=== PATIENT | male | born 1945 | race Caucasian/White ===

== ENCOUNTER → 2018-04-27 09:24 | Outpatient (CLI) | payer MEDICARE, SELFPAY ==
--- NOTE | 2018-04-27 09:30 | XR_ITS ---
XR chest 2V HISTORY: ITS.REASON: HTN ORDERING PHYSICIAN: Homero David JR, MD PATIENT AGE: 73 years COMPARISON: None FINDINGS: The cardiomediastinal silhouette and pulmonary vascularity are within normal limits. There is increased density in the right lung base medially which may be due to an area of infiltrate. Suggest follow-up to confirm resolution. At this does not resolve then, CT may be needed for further evaluation. The remaining lungs are clear. No acute bony anomalies. IMPRESSION: Increased markings right lung base medially suspicious for an area of infiltrate. Suggest follow until clear
== END ==
PROVIDERS: PCP Family Medicine; Visit Provider Family Medicine
DX: Z01.818 Encounter for other preprocedural examination (principal)
CPT/HCPCS: 71046

== ENCOUNTER → 2018-05-18 13:22 | Outpatient (CLI) | payer MEDICARE, SELFPAY ==
--- NOTE | 2018-05-18 13:28 | XR_ITS ---
XR chest 2V HISTORY: Follow-up pneumonia, previous smoker ITS.REASON: LUNG INFILTRATE ORDERING PHYSICIAN: Homero David JR, MD PATIENT AGE: 73 years COMPARISON: 04/27/2018 FINDINGS: The cardiomediastinal silhouette and pulmonary vascularity are within normal limits. The increased markings previously described in the right lung base medially have improved consistent with improvement in infiltrate with some overlying summation artifact. Remaining lungs are clear. No acute bony anomalies. IMPRESSION: No acute finding. Improved infiltrate in the right lung base
== END ==
PROVIDERS: PCP Family Medicine; Visit Provider Family Medicine
DX: R91.8 Other nonspecific abnormal finding of lung field (principal)
CPT/HCPCS: 71046

== ENCOUNTER → 2018-06-12 20:00 | Outpatient (CLI) | payer MEDICARE, SELFPAY ==
--- NOTE | 2018-06-12 20:05 | XR_ITS ---
XR chest 2V HISTORY: ITS.REASON: CONGESTION ORDERING PHYSICIAN: Homero David JR, MD PATIENT AGE: 73 years COMPARISON: 05/18/2018 FINDINGS: The cardiomediastinal silhouette and pulmonary vascularity are within normal limits. The lungs are clear without infiltrates, suspicious nodules, or pleural effusions. No acute bony abnormalities. IMPRESSION: Negative chest, no acute finding
== END ==
PROVIDERS: Visit Provider Family Medicine
DX: Z01.811 Encounter for preprocedural respiratory examination (principal); M25.561 Pain in right knee
CPT/HCPCS: 71046

== ENCOUNTER 2018-07-28 08:30 | Outpatient (RCR) | payer MEDICARE, SELFPAY | END 2018-07-28 08:31 | disposition home or self-care (01) | LOC: PT 08:30 | PROVIDERS: PCP Family Medicine; Visit Provider Orthopaedic Surgery | DX: M25.561 Pain in right knee (principal) | CPT/HCPCS: 97016; 97110; 97140; 97163 ==

== ENCOUNTER → 2020-05-15 15:16 | Outpatient (CLI) | payer MEDICARE, SELFPAY ==
[2020-05-15 18:35] LABS: Coronavirus 19 IgG Antibody Negative (Negative); Coronavirus 19 IgM Antibody Negative (Negative)
== END ==
PROVIDERS: PCP Family Medicine; Visit Provider Family Medicine
DX: Z20.828 Contact with and (suspected) exposure to other viral communicable diseases (principal)
CPT/HCPCS: 36415; 86328

== ENCOUNTER 2020-09-05 15:05 | Emergency (ER) | payer MEDICARE, SELFPAY ==
[2020-09-05 15:06] VITALS: BP 154/89; PULSE 88; RESP 16; TEMP 36.6; O2SAT 98; BMI 36.1
--- NOTE | 2020-09-05 15:09 | ECG_ITS ---
APPROVED REPORT Exam: Resting ECG HR:85 bpm ECG Measurements Heart Rate 85 AXES UT 152 P 53 QRSd 88 QRS 6 QT 374 T 28 QTc 445 Conclusion Sinus rhythm with occasional premature ventricular complexes Abnormal ECG Electronically signed by : Joe Greenfield, 09/15/2020 16:28:34
--- NOTE | 2020-09-05 15:12 | CT_ITS ---
Procedure: CT ANGIO NECK CLINICAL HISTORY: dysarthria COMPARISON: CT CT ANGIO HEAD from 09/05/2020 TECHNIQUE: IV Contrast: 100ml Optiray 350 Axial images obtained with sagittal and coronal reformats. All CT scans at the facility use one or more dose reduction, viz: automated exposure control, ma/kV adjustment per patient size (including targeted exams where dose is matched to indication, i.e. head), or iterative reconstruction technique. FINDINGS: There are atheromatous changes of the aortic arch. No significant stenosis of the proximal aspect of the great vessels. Right carotid: Common carotid has an unremarkable appearance. Fibrocalcific plaque is present at the proximal aspect of the right ICA with eccentric calcific plaque and soft plaque also noted. This. There is 50 percent stenosis at this area. There is tortuosity of the right ICA having a retropharyngeal location. The remaining cervical portion of the right ICA has an unremarkable appearance. No ulcerating plaque is evident. Left carotid: The common carotid has an unremarkable appearance. Calcific plaque is present involving the proximal left ICA. There is less than 20 percent stenosis but there is some ulceration along the posterior aspect the left carotid bulb. Eccentric calcific plaque is present involving the proximal left ICA. No significant stenosis. There is a very small right vertebral artery. The left vertebral artery is dominant with a prominent left vertebral artery with severe calcific plaque involving the proximal aspect of the left vertebral artery. The plaque extends from the left subclavian artery into the ostium the left vertebral artery. There is suspected critical stenosis of the ostium of the left vertebral versus occlusion somewhat difficult to analyze due to the artifact from the calcific plaque. CTA of the brain: The basilar artery is composed almost exclusively of the left vertebral artery. There is some mild amount of calcific plaque in the basilar artery with approximately 25 percent stenosis. The intracranial portion of the internal carotids are unremarkable with a small amount of calcific plaque with no significant stenosis. There is a small area outpouching of the suprasellar portion of the left ICA inferiorly suggesting a small aneurysm at 3 by 2 mm at the PCOM area. There is a very small vessel emanating from the medial aspect of this and may be due to a very small PCOM or anterior meningeal artery. This is on the borderline between a infundibulum and a small aneurysm. There is absence of the right A1 segment. The right anterior cerebral artery fills via a patent anterior communicating artery from the left carotid. Follow-up suggested. No evidence of dural sinus thrombosis. No enhancing lesions are evident. No midline shift or mass effect. IMPRESSION: 1. 50 percent stenosis of the proximal right ICA secondary to calcific plaque 2. Less than 20 percent stenosis of the proximal left ICA with shallow ulceration of the left carotid bulb 3. 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 4. Critical stenosis versus occlusion of the proximal aspect of the left vertebral artery secondary to prominent calcific plaque. The left vertebral artery is dominant 5. 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
--- NOTE | 2020-09-05 15:12 | XR_ITS ---
PROCEDURE: XR CHEST PORTABLE CLINICAL HISTORY: cough COMPARISON: CR CXR2V XR chest 2V from 04/27/2018 CR CXR2V XR chest 2V from 05/18/2018 CR CXR2V XR chest 2V from 06/12/2018 FINDINGS: The cardiomediastinal silhouette and pulmonary vascularity are within normal limits. The lungs are clear without infiltrates, suspicious nodules, or pleural effusions. No acute bony abnormalities. IMPRESSION: No acute findings. Dictated by: Minor Valdez MD 09/05/2020 17:04 Minor Valdez MD in [facility] 09/05/2020 17:04
--- NOTE | 2020-09-05 15:12 | CT_ITS ---
PROCEDURE: CT HEAD/BRAIN WO CON CLINICAL INDICATION: dysarthria COMPARISON: No exams were available for comparison TECHNIQUE: Axial images obtained. All CT scans at the facility use one or more dose reduction, viz: automated exposure control, ma/kV adjustment per patient size (including targeted exams where dose is matched to indication, i.e. head), or iterative reconstruction technique. FINDINGS: No midline shift, mass effect, intracranial hemorrhage, hydrocephalus, or extra-axial fluid collection is evident. Calcific plaque is present in the basilar artery and cavernous portion of the carotids. The calvarium has an unremarkable appearance. No mastoid effusion. No sinus air-fluid level. IMPRESSION: No acute intracranial finding Dictated by: Minor Valdez MD 09/05/2020 16:03 Minor Valdez MD in [facility] 09/05/2020 16:03
--- NOTE | 2020-09-05 15:24 | PC.NURSE ---
Pt to rad
[2020-09-05 15:26] LABS: Basophils # 0.1 K/mm3 (0-0.2); Basophils % 1.3 % (0.1-2.0); Eosinophils # 0.3 K/mm3 (0.0-0.4); Eosinophils % 3.1 % (0.1-12.0); Hematocrit 48.5 % (42.0-52.0); Hemoglobin 16.1 g/dL (14.1-18.0); Lymphocytes # 2.6 K/mm3 (0.7-4.5); Lymphocytes % 28.3 % (10-50); Mean Corpuscular HGB Conc 33.3 g/dL (31.8-35.4); Mean Corpuscular Hemoglobin 31.6 pg (27.0-31.2); Mean Platelet Volume 8.6 fl (7.4-10.4); Monocytes # 0.7 K/mm3 (0.1-1.0); Monocytes % 7.2 % (1.7-9.3); Neutrophils # 5.6 K/mm3 (1.8-7.8); Neutrophils % 60.1 % (37.0-80.0); Platelet Count 227 K/mm3 (142-424); Red Cell Distribution Width 13.1 % (11.5-17.5); White Blood Count 9.3 K/mm3 (4.8-10.8)
[2020-09-05 15:28] LABS: Chloride 102 mmol/L (98-107)
[2020-09-05 15:29] LABS: Potassium 3.5 mmoL/L (3.5-5.1); Sodium 141 mmol/L (136-145)
[2020-09-05 15:31] LABS: Alanine Aminotransferase 23 U/L (12-78); Aspartate Amino Transferase 28 U/L (17-59); Blood Urea Nitrogen 20 mg/dl (9-20); Creatinine Clearance Estimated 84 mL/min (50-200); Estimated Glomerular Filt Rate 54 ml/min (>60); GFR (African American) 65 ML/MIN (>60)
[2020-09-05 15:32] LABS: Albumin Level 4.1 g/dl (3.5-5.0); Albumin/Globulin Ratio 1.4 (1.1-1.8); Alkaline Phosphatase 63 U/L (38-126); Anion Gap 9.5 mEq/L (5-15); Bilirubin,Total 0.9 mg/dl (0.2-1.3); Calcium 9.2 mg/dl (8.4-10.2); Carbon Dioxide 33 mmol/L (22.0-30.0); Globulin 2.9 g/dL (1.3-3.2); Glucose 95 mg/dl (74-100); Lipase 93 U/L (23-300)
[2020-09-05 15:36] LABS: Activated Partial Thrombo Time 23.9 seconds (23.6-34.0); INR 1.02 (0.9-1.1); Prothrombin Time 11.3 seconds (9.4-11.8)
[2020-09-05 15:41] LABS: NT Pro Brain Natriuretic Pep. 83.6 pg/mL (0-125)
[2020-09-05 15:47] LABS: Troponin I < 0.01 ng/ml (0.00-0.034)
--- NOTE | 2020-09-05 15:56 | HMH.EDWEAK ---
ED Disposition Clinical Impression: Dysarthria as late effect of cerebrovascular accident (CVA) Disposition: Home, Self-Care Condition on Discharge: Fair Instructions: DI for Stroke-Ischemic Referrals: PCP,Lindsey [Primary Care Provider] - Roxana Shane MD [Staff Physician] - - Critical Care Critical Care Time: No Attestation: On 09/05/20, the high probability of a clinically significant, sudden or life threatening deterioration of the following system(s) required my full and direct attention, intervention and personal management. The time I documented below is in addition to time spent performing reported procedures but includes the following listed in this critical care notation. Medical Decision Making - Medical Records Medical records reviewed: Yes: I reviewed the patient's medical records. - Christopher Inquiry Pt receiving controlled substance: No Vital Signs: 09/05/20 15:06 09/05/20 16:08 09/05/20 16:39 Temperature 98 F Temperature Source Oral Pulse Rate [Radial] 88 85 80 Respiratory Rate 16 20 Blood Pressure [Right Arm] 154/89 H 140/73 152/69 H Blood Pressure Mean [Right Arm] 110 95 96 Blood Pressure Source [Right Arm] Automatic Cuff Automatic Cuff Blood Pressure Position [Right Arm] Sitting Sitting Sitting 02 Sat by Pulse Oximetry 98 97 94 L Oxygen Delivery Method Room Air Room Air Room Air - Lab Data Lab Results 09/05/20 15:16: WBC 9.3, RBC 5.10, Hgb 16.1, Hct 48.5, MCV 95.0 H, MCH 31.6 H, MCHC 33.3, RDW 13.1, Plt Count 227, MPV 8.6, Neut % (Auto) 60.1, Lymph % (Auto) 28.3, [place] % (Auto) 7.2, Eos % (Auto) 3.1, Baso % (Auto) 1.3, Neut # (Auto) 5.6, Lymph # (Auto) 2.6, [place] # (Auto) 0.7, Eos # (Auto) 0.3, Baso # (Auto) 0.1 09/05/20 15:16: PT 11.3, INR 1.02, APTT 23.9 09/05/20 15:16: Sodium 141, Potassium 3.5, Chloride 102, Carbon Dioxide 33 H, Anion Gap 9.5, BUN 20, Creatinine 1.30 H, Estimated Creat Clear 84, Estimated GFR 54 L, Est GFR ( Amer) 65, Glucose 95, Calcium 9.2, Total Bilirubin 0.9, AST 28, ALT 23, Alkaline Phosphatase 63, Troponin I < 0.01, NT-Pro-B Natriuret Pep 83.6, Total Protein 7.0, Albumin 4.1, Globulin 2.9, Albumin/Globulin Ratio 1.4, Lipase 93, TSH 1.78 09/05/20 16:25: Urine Color Yellow, Urine Appearance Clear, Urine pH 7.0, Ur Specific Crawford 1.010, Urine Protein Negative, Urine Glucose (UA) Negative, Urine Ketones Negative, Urine Blood Negative, Urine Nitrate Negative, Urine Bilirubin Negative, Urine Urobilinogen 0.2, Ur Leukocyte Esterase Negative, Urine RBC Occasional, Urine WBC None, Ur Squamous Epith Cells Occasional, Urine Bacteria None Result diagrams: 09/05/20 15:16 09/05/20 15:16 Orders (Tests/Meds): ED MEDICATIONS Discontinued Medications Generic Name Dose Route Start Last Admin Trade Name Daytonq PRN Reason Stop Dose Admin Ioversol 100 ml 09/05/20 15:47 09/05/20 15:48 Ioversol-350 (74%) 100ml Vial IV 09/05/20 15:48 100 ml ONCE ONE Administration Protocol Sodium Chloride 10 ml 09/05/20 15:47 09/05/20 15:48 Sodium Chloride 0.9% 10ml Syr (Rad Only) IV 09/05/20 15:48 10 ml ONCE ONE Administration Sodium Chloride 50 ml 09/05/20 15:47 09/05/20 15:48 0.9 % Sodium Chloride 50 Ml Vial IV 09/05/20 15:48 50 ml ONCE ONE Administration ORDERS Category Date Time Status XR chest portable Stat Exams 09/05/20 15:12 Taken Troponin I Q3H Lab 09/05/20 18:15 Ordered Troponin I Q3H Lab 09/05/20 21:15 Ordered EKG Request [ECG Request by /Nse] Stat Y 09/05/20 15:12 Ordered - CT Data CT Scan: Head Time Received: 16:[address] Reviewed: Yes: I have reviewed the patient's CT results, I have viewed the radiologist's interpretation Findings Narrative: IMPRESSION: No acute intracranial finding CTA head/neck IMPRESSION: 1. 50 percent stenosis of the proximal right ICA secondary to calcific plaque 2. Less than 20 percent stenosis of the proximal left ICA with shallow ulceration of the left carotid bulb
[2020-09-05 16:03] LABS: Thyroid Stimulating Hormone 1.78 uIU/mL (0.465-4.68)
[2020-09-05 16:08] VITALS: BP 140/73; PULSE 85; O2SAT 97
[2020-09-05 16:31] LABS: Microscopic, Urine URINE MICROSCOPIC (MICROSCOPIC)
[2020-09-05 16:33] LABS: Appearance,Urine CLEAR (Clear); Bilirubin,Urine Negative (Negative); Blood, Urine Negative (Negative); Color,Urine YELLOW (Yellow); Glucose,Urine (UA) Negative (Negative); Ketones,Urine Negative (Negative); Leukocyte Esterase,Urine Negative (Negative); Nitrate,Urine Negative (Negative); Protein,Urine Negative (Negative); Urobilinogen,Urine 0.2 EU/dl (0.2)
[2020-09-05 16:39] VITALS: BP 152/69; PULSE 80; RESP 20; O2SAT 94
[2020-09-05 16:41] LABS: RBC,Urine Occasional #/hpf (0-3)
[2020-09-05 16:42] LABS: Squamous Epithelial Cell,Urine Occasional #/hpf (0-5)
[2020-09-05 17:07] VITALS: BP 144/86; PULSE 78; RESP 16; TEMP 36.6; O2SAT 98
[2020-10-02 09:29] LABS: POC Glucose,Bedside 98 (70-110)
== END 2020-09-05 17:08 | disposition home or self-care (01) ==
PROVIDERS: Emergency Provider Emergency Medicine
DX: I69.322 Dysarthria following cerebral infarction (principal); I10 Essential (primary) hypertension; E78.5 Hyperlipidemia, unspecified; Z87.891 Personal history of nicotine dependence; Z79.899 Other long term (current) drug therapy
CPT/HCPCS: 70450; 70496; 70498; 71045; 80053; 81001; 82962; 83690; 83880; 84443; 84484; 85025; 85610; 85730; 93005; 99284; Q9967

== ENCOUNTER → 2020-10-18 11:54 | Outpatient (CLI) | payer MEDICARE, SELFPAY | PROVIDERS: PCP Family Medicine; Visit Provider Family Medicine | DX: R00.2 Palpitations (principal); H54.7 Unspecified visual loss; I63.9 Cerebral infarction, unspecified; G45.9 Transient cerebral ischemic attack, unspecified | CPT/HCPCS: 93225; 93226 ==

== ENCOUNTER → 2021-10-28 15:33 | Outpatient (CLI) | payer MEDICARE, SELFPAY ==
[2021-10-28 16:05] LABS: Basophils # 0.2 K/mm3 (0-0.2); Basophils % 1.9 % (0.1-2.0); Eosinophils # 0.3 K/mm3 (0.0-0.4); Eosinophils % 2.7 % (0.1-12.0); Hematocrit 40.7 % (42.0-52.0); Hemoglobin 14.1 g/dL (14.1-18.0); Lymphocytes # 2.5 K/mm3 (0.7-4.5); Lymphocytes % 27.8 % (10-50); Mean Corpuscular HGB Conc 34.7 g/dL (31.8-35.4); Mean Corpuscular Hemoglobin 31.4 pg (27.0-31.2); Mean Corpuscular Volume 90.4 fl (80-94); Mean Platelet Volume 8.7 fl (7.4-10.4); Monocytes # 0.7 K/mm3 (0.1-1.0); Monocytes % 7.8 % (1.7-9.3); Neutrophils # 5.5 K/mm3 (1.8-7.8); Neutrophils % 59.9 % (37.0-80.0); Platelet Count 211 K/mm3 (142-424); Red Cell Distribution Width 13.1 % (11.5-17.5); White Blood Count 9.2 K/mm3 (4.8-10.8)
[2021-10-28 17:05] LABS: Alanine Aminotransferase 29 U/L (12-78); Albumin Level 4.2 g/dl (3.5-5.0); Albumin/Globulin Ratio 1.7 (1.1-1.8); Alkaline Phosphatase 60 U/L (38-126); Anion Gap 10.3 mEq/L (5-15); Aspartate Amino Transferase 30 U/L (17-59); Bilirubin,Total 0.6 mg/dl (0.2-1.3); Blood Urea Nitrogen 22 mg/dl (9-20); Calcium 9.4 mg/dl (8.4-10.2); Carbon Dioxide 30 mmol/L (22.0-30.0); Chloride 102 mmol/L (98-107); Chol/HDL Ratio 5.3 (1-3.5); Cholesterol 100 mg/dl (140-200); Estimated Glomerular Filt Rate 46 ml/min (>60); GFR (African American) 55 ML/MIN (>60); Globulin 2.5 g/dL (1.3-3.2); Glucose 86 mg/dl (74-100); HDL Cholesterol 19 mg/dl (40-60); Potassium 4.3 mmoL/L (3.5-5.1); Sodium 138 mmol/L (136-145); Total Protein,Serum 6.7 g/dl (6.3-8.2); Triglycerides 305 mg/dl (30-150); VLDL Cholesterol 61 mg/dL (0-40)
[2021-10-28 17:16] LABS: Direct LDL Cholesterol 44.68 mg/dL (100-129)
[2021-10-28 17:36] LABS: Thyroid Stimulating Hormone 2.44 uIU/mL (0.465-4.68)
== END ==
PROVIDERS: Visit Provider Family Medicine
DX: Z00.00 Encounter for general adult medical examination without abnormal findings (principal); I10 Essential (primary) hypertension; N18.30 Chronic kidney disease, stage 3 unspecified; E04.1 Nontoxic single thyroid nodule; G47.00 Insomnia, unspecified; Z91.89 Other specified personal risk factors, not elsewhere classified
CPT/HCPCS: 36415; 80053; 80061; 84443; 85025

== ENCOUNTER → 2023-02-10 08:19 | Outpatient (CLI) | payer MEDICARE, SELFPAY ==
[2023-02-10 09:32] LABS: Chol/HDL Ratio 5.8 (1-3.5); Cholesterol 140 mg/dl (140-200); HDL Cholesterol 24 mg/dl (40-60); Triglycerides 316 mg/dl (30-150); VLDL Cholesterol 63 mg/dL (0-40)
[2023-02-10 09:43] LABS: Direct LDL Cholesterol 67.19 mg/dL (100-129)
== END ==
PROVIDERS: PCP Internal Medicine Adolescent Medicine; Visit Provider Internal Medicine Cardiovascular Disease
DX: E78.5 Hyperlipidemia, unspecified (principal)
CPT/HCPCS: 36415; 80061

== ENCOUNTER 2023-03-14 05:36 | Emergency (ER) | payer MEDICARE, SELFPAY ==
[2023-03-14 05:37] VITALS: BP 128/79; PULSE 93; RESP 21; TEMP 36.9; O2SAT 97; BMI 35.9
[2023-03-14 06:01] VITALS: BP 132/83; PULSE 86; O2SAT 94
--- NOTE | 2023-03-14 06:02 | HMH.EDSOB ---
Discharge Plan Disposition Patient Disposition: Home, Self-Care Condition: Good Prescriptions Prescriptions: New doxycycline hyclate 100 mg capsule 100 mg PO BID 10 Days Qty: 20 0RF benzonatate 100 mg capsule 100 mg PO TID PRN (Reason: cough) Qty: 9 0RF amoxicillin 875 mg tablet 875 mg PO Q12H 7 Days Qty: 14 0RF No Action atorvastatin 40 mg tablet PO temazepam 30 mg capsule PO losartan-hydrochlorothiazide 50-12.5 mg tablet PO triamterene-hydrochlorothiazid 37.5-25 mg tablet PO Ciprodex 0.3-0.1 % drops,suspension 4 drp OTIC BID Qty: 7.5 0RF Referrals Follow up/Referrals: Eric Jerome MD [Primary Care Provider] - See instructions Activity Restrictions/Add. Instructions Additional Instructions/Restrictions: Finish the entire course of antibiotics return to the ER for any new or worsening symptoms. Clinical Impressions Clinical Impression: Atypical pneumonia Instructions Patient Instructions: DI for Pneumonia -- Adult Discharge ED Provider: Yasir Leyva Resp/SOB HPI General Chief Complaint: Shortness of Breath/Dyspnea Stated Complaint: Cough X4 days, SOA Time Seen by Provider: 03/14/23 05:46 History of Present Illness 78-year-old male presents with complaints of shortness of breath with intermittently productive cough since Tuesday. He is having significant sinus congestion and difficulty breathing through his nose. He is sore after coughing spells but otherwise is not having chest pain or abdominal pain. Denies nausea vomiting diarrhea. He is not sure that he has had any fever but endorses intermittent body aches and chills Related Data Home Medications Medication Instructions Recorded Confirmed atorvastatin 40 mg tablet PO 08/16/19 08/16/19 losartan 50 mg-hydrochlorothiazide PO 08/16/19 08/16/19 12.5 mg tablet temazepam 30 mg capsule PO 08/16/19 08/16/19 triamterene 37.5 PO 08/16/19 08/16/19 mg-hydrochlorothiazide 25 mg tablet Previous Rx's Medication Instructions Recorded ciprofloxacin 0.3 %-dexamethasone 4 drp otic (ear) BID #7.5 mL 08/16/19 0.1 % ear drops,suspension (Ciprodex) amoxicillin 875 mg tablet 875 mg PO Q12H 7 days #14 tabs 03/14/23 benzonatate 100 mg capsule 100 mg PO TID PRN cough #9 caps 03/14/23 doxycycline hyclate 100 mg capsule 100 mg PO BID 10 days #20 caps 03/14/23 Allergies Allergy/AdvReac Type Severity Reaction Status Date / Time No Known Allergies Allergy Unknown Uncoded 11/01/17 14:[address] [facility] Disclaimer: The information contained in this section may have been updated after the patient was seen, as this information can be updated by other users. Social History Smoking Status: Former smoker alcohol intake: never current occupational status: employed Travel in the last 8 weeks: None ROS Obtained: Yes Systems reviewed as appropriate & no additional complaints except as documented Physical Exam General General appearance: alert and in no apparent distress Head Head exam: atraumatic and normocephalic Eye Eye exam: Present normal appearance ENT ENT exam: Present normal exam Neck Neck exam: Present normal inspection and trachea midline Chest Chest inspection: Present normal inspection and symmetric chest wall rise Respiratory Respiratory exam: Present normal lung sounds bilaterally; Absent respiratory distress or wheezes Cardiovascular Cardiovascular exam: Present regular rate and normal rhythm Abdominal Exam Abdominal exam: Present soft; Absent distention or tenderness Extremities Exam Extremities exam: Present edema (Trace lower extremity edema bilaterally) Neurological Exam Neurological exam: Present alert and oriented X3 Psychiatric Psychiatric exam: Present normal affect Skin Skin exam: Present warm, dry and intact Medical Decision Making Medical Records Medical records reviewed: Yes I reviewed th
[2023-03-14 06:17] LABS: Basophils # 0.1 K/mm3 (0-0.2); Basophils % 1.1 % (0.1-2.0); Eosinophils # 0.5 K/mm3 (0.0-0.4); Eosinophils % 4.8 % (0.1-12.0); Hematocrit 49.8 % (42.0-52.0); Hemoglobin 16.5 g/dL (14.1-18.0); Lymphocytes # 2.7 K/mm3 (0.7-4.5); Lymphocytes % 25.7 % (10-50); Mean Corpuscular HGB Conc 33.1 g/dL (31.8-35.4); Mean Corpuscular Hemoglobin 31.9 pg (27.0-31.2); Mean Corpuscular Volume 96.4 fl (80-94); Monocytes # 0.7 K/mm3 (0.1-1.0); Monocytes % 6.9 % (1.7-9.3); Neutrophils # 6.4 K/mm3 (1.8-7.8); Neutrophils % 61.5 % (37.0-80.0); Platelet Count 189 K/mm3 (142-424); Red Blood Count 5.16 M/mm3 (4.60-6.20); Red Cell Distribution Width 12.7 % (11.5-17.5); White Blood Count 10.5 K/mm3 (4.8-10.8)
[2023-03-14 06:22] LABS: Alanine Aminotransferase 28 U/L (12-78); Albumin/Globulin Ratio 1.3 (1.1-1.8); Alkaline Phosphatase 60 U/L (38-126); Anion Gap 13.8 mEq/L (5-15); Aspartate Amino Transferase 34 U/L (17-59); Bilirubin,Total 0.7 mg/dl (0.2-1.3); Blood Urea Nitrogen 19 mg/dl (9-20); Calcium 9.4 mg/dl (8.4-10.2); Carbon Dioxide 33 mmol/L (22.0-30.0); Chloride 96 mmol/L (98-107); Creatinine Clearance Estimated 63 mL/min (50-200); Estimated Glomerular Filt Rate 42 ml/min (>60); GFR (African American) 51 ML/MIN (>60); Globulin 3.2 g/dL (1.3-3.2); Glucose 131 mg/dl (74-100); Potassium 3.8 mmoL/L (3.5-5.1); Sodium 139 mmol/L (136-145); Total Protein,Serum 7.2 g/dl (6.3-8.2)
[2023-03-14 06:30] VITALS: BP 119/73; PULSE 74; O2SAT 95
[2023-03-14 06:33] LABS: Coronavirus 19, PCR Not Detected (NotDetected); Influenza A, PCR Not Detected (NotDetected); Influenza B, PCR Not Detected (NotDetected)
--- NOTE | 2023-03-14 06:34 | XR_ITS ---
FINAL REPORT CLINICAL HISTORY: dyspnea FINDINGS: A single view of the chest was obtained. The heart is at the upper limits of normal in size. The mediastinum is unremarkable. The lungs are clear. There is no pleural effusion. There is no pneumothorax. There is no acute osseous abnormality. IMPRESSION: No acute cardiopulmonary process. Reviewed, Interpreted and Dictated by Mariano Menchaca MD Transcribed by Agatha Perez Authenticated and [facility]
--- NOTE | 2023-03-14 06:45 | PC.NURSE ---
Pt resting in bed. No needs or complaints voiced at this time.
[2023-03-14 07:00] VITALS: BP 129/79; PULSE 78; O2SAT 95
[2023-03-14 07:12] LABS: NT Pro Brain Natriuretic Pep. < 20.0 pg/mL (0-450)
--- NOTE | 2023-03-14 07:13 | PC.NURSE ---
pt sleeping quietly. Xray notified on the need for XR
--- NOTE | 2023-03-14 07:15 | PC.NURSE ---
Shift report given to Betty Rivers RN & Isa Hirsch RN
[2023-03-14 07:16] LABS: C-Reactive Protein 26.4 mg/L (0-4)
--- NOTE | 2023-03-14 07:20 | PC.NURSE ---
portable xray at
--- NOTE | 2023-03-14 07:20 | PC.NURSE ---
xr at bedside
[2023-03-14 07:29] LABS: Procalcitonin 0.089 ng/mL (0.0-2.0)
[2023-03-14 07:30] VITALS: BP 114/78; PULSE 72; O2SAT 94
--- NOTE | 2023-03-14 07:59 | PC.NURSE ---
DR ALVES AT BEDSIDE TO UPDATE PT ON POC
[2023-03-14 08:41] VITALS: BP 126/81; PULSE 72; RESP 16; TEMP 36.9; O2SAT 94
== END 2023-03-14 08:41 | disposition home or self-care (01) ==
PROVIDERS: Emergency Provider Student in an Organized Health Care Education/Training Program; PCP Internal Medicine Adolescent Medicine
DX: J18.9 Pneumonia, unspecified organism (principal); Z87.891 Personal history of nicotine dependence
CPT/HCPCS: 71045; 80053; 83880; 84145; 85025; 86140; 96374; 99284; 99285; C9803; U0003; U0005

== ENCOUNTER → 2023-03-18 10:30 | Outpatient (CLI) | payer MEDICARE, SELFPAY ==
--- NOTE | 2023-03-18 10:34 | XR_ITS ---
FINAL REPORT CLINICAL HISTORY: left shoulder pain FINDINGS: Left shoulder Three views were obtained. There is no acute fracture or dislocation. There are mild hypertrophic changes of osteoarthritis of the glenohumeral joint. There are osteophytes along the undersurface of the humeral head. No soft tissue abnormality is identified. IMPRESSION: Changes of osteoarthritis. Reviewed, Interpreted and Dictated by Mariano Menchaca MD Transcribed by Ale Ellington Authenticated and [facility]
== END ==
PROVIDERS: PCP Internal Medicine Adolescent Medicine; Visit Provider Orthopaedic Surgery
DX: M25.512 Pain in left shoulder (principal)
CPT/HCPCS: 73030

== ENCOUNTER → 2023-03-25 11:13 | Outpatient (CLI) | payer MEDICARE, SELFPAY ==
[2023-03-25 11:31] LABS: Microscopic, Urine URINE MICROSCOPIC (MICROSCOPIC)
[2023-03-25 11:58] LABS: Appearance,Urine CLEAR (Clear); Bilirubin,Urine Negative (Negative); Blood, Urine Negative (Negative); Color,Urine YELLOW (Yellow); Glucose,Urine (UA) Negative (Negative); Ketones,Urine Negative (Negative); Leukocyte Esterase,Urine Negative (Negative); Nitrate,Urine Negative (Negative); PH,Urine 6.5 (5.0-8.5); Protein,Urine Negative (Negative); Urobilinogen,Urine 0.2 EU/dl (0.2)
[2023-03-25 12:11] LABS: Hemoglobin A1C 5.4 % (4.0-6.0)
[2023-03-25 12:11] LABS: Basophils # 0.1 K/mm3 (0-0.2); Basophils % 0.9 % (0.1-2.0); Eosinophils # 0.3 K/mm3 (0.0-0.4); Eosinophils % 3.6 % (0.1-12.0); Hematocrit 47.3 % (42.0-52.0); Hemoglobin 15.4 g/dL (14.1-18.0); Lymphocytes # 2.5 K/mm3 (0.7-4.5); Lymphocytes % 26.4 % (10-50); Mean Corpuscular HGB Conc 32.6 g/dL (31.8-35.4); Mean Corpuscular Hemoglobin 31.9 pg (27.0-31.2); Mean Corpuscular Volume 97.7 fl (80-94); Mean Platelet Volume 9.3 fl (7.4-10.4); Monocytes # 0.7 K/mm3 (0.1-1.0); Monocytes % 7.8 % (1.7-9.3); Neutrophils # 5.8 K/mm3 (1.8-7.8); Neutrophils % 61.2 % (37.0-80.0); Platelet Count 186 K/mm3 (142-424); Red Blood Count 4.84 M/mm3 (4.60-6.20); Red Cell Distribution Width 12.7 % (11.5-17.5); White Blood Count 9.4 K/mm3 (4.8-10.8)
[2023-03-25 12:18] LABS: Bacteria,Urine Trace /lpf; Squamous Epithelial Cell,Urine Occasional #/hpf (0-5)
[2023-03-25 12:19] LABS: Chloride 96 mmol/L (98-107); Potassium 4.7 mmoL/L (3.5-5.1); Sodium 137 mmol/L (136-145)
[2023-03-25 12:21] LABS: Blood Urea Nitrogen 23 mg/dl (9-20)
[2023-03-25 12:22] LABS: Alanine Aminotransferase 37 U/L (12-78); Albumin Level 3.7 g/dl (3.5-5.0); Albumin/Globulin Ratio 1.5 (1.1-1.8); Alkaline Phosphatase 54 U/L (38-126); Anion Gap 13.7 mEq/L (5-15); Aspartate Amino Transferase 29 U/L (17-59); Bilirubin,Total 0.5 mg/dl (0.2-1.3); Calcium 9.2 mg/dl (8.4-10.2); Carbon Dioxide 32 mmol/L (22.0-30.0); Estimated Glomerular Filt Rate 54 ml/min (>60); GFR (African American) 65 ML/MIN (>60); Globulin 2.4 g/dL (1.3-3.2); Glucose 102 mg/dl (74-100); Total Protein,Serum 6.1 g/dl (6.3-8.2)
[2023-03-25 12:43] LABS: Chol/HDL Ratio 4.7 (1-3.5); Cholesterol 113 mg/dl (140-200); HDL Cholesterol 24 mg/dl (40-60); Triglycerides 311 mg/dl (30-150); VLDL Cholesterol 62 mg/dL (0-40)
[2023-03-25 12:54] LABS: Direct LDL Cholesterol 60.21 mg/dL (100-129)
[2023-03-25 13:14] LABS: Prostate Specific Ag Screen 0.5 ng/ml (0.0-4.0)
== END ==
PROVIDERS: PCP Internal Medicine Adolescent Medicine; Visit Provider Internal Medicine Nephrology
DX: I12.9 Hypertensive chronic kidney disease with stage 1 through stage 4 chronic kidney disease, or unspecified chronic kidney disease (principal); N18.2 Chronic kidney disease, stage 2 (mild); N14.0 Analgesic nephropathy; E78.5 Hyperlipidemia, unspecified; J42 Unspecified chronic bronchitis; G47.33 Obstructive sleep apnea (adult) (pediatric); E66.9 Obesity, unspecified; Z68.35 Body mass index [BMI] 35.0-35.9, adult; Z79.899 Other long term (current) drug therapy
CPT/HCPCS: 36415; 80053; 80061; 81001; 83036; 85025; G0103

== ENCOUNTER → 2023-09-27 13:23 | Outpatient (POV) | payer MEDICARE, SELFPAY | PROVIDERS: PCP Internal Medicine Adolescent Medicine; Visit Provider Dermatology | DX: Z00.00 Encounter for general adult medical examination without abnormal findings (principal) ==

== ENCOUNTER 2023-11-18 10:02 | Emergency (ER) | payer MEDICARE, SELFPAY ==
[2023-11-18 10:15] VITALS: BP 136/87; PULSE 88; RESP 19; TEMP 36.8; O2SAT 98; BMI 37.6
--- NOTE | 2023-11-18 10:21 | ED_ITS ---
Discharge Plan Disposition Patient Disposition: Home, Self-Care Condition: Good Prescriptions Prescriptions: New azithromycin [Zithromax] 250 mg tablet 250 mg PO UD DOSE PK Qty: 6 0RF Rx Instructions: Take two (2) tablets today, then one (1) tablet days #2 thru #5 benzonatate [benzonatate] 100 mg capsule 100 mg PO TIDP PRN (Reason: Cough) Qty: 30 0RF methylprednisolone 4 mg Tablets,Dose Pack 4 mg PO DIRECTED 6 Days Qty: 21 0RF Rx Instructions: Take 1 pack as directed for 6 days No Action pravastatin 40 mg tablet 40 mg PO HS clopidogrel 75 mg tablet 75 mg PO DAILY temazepam 30 mg capsule 30 mg PO DAILY losartan-hydrochlorothiazide 50-12.5 mg tablet 1 tab PO DAILY levocetirizine 5 mg tablet 5 mg PO DAILY Referrals Follow up/Referrals: Eric Jerome MD [Primary Care Provider] - See instructions Activity Restrictions/Add. Instructions Additional Instructions/Restrictions: Drink plenty of fluids. Take tylenol or ibuprofen for pain or fever. Take the medications as directed. Follow up with your regular doctor. GO TO THE ER FOR ANY WORSENING SYMPTOMS Don't start the oral steroids until tomorrow, since you had the shot here today. Clinical Impressions Clinical Impression: Pharyngitis, Acute viral syndrome Instructions Patient Instructions: DI for Pharyngitis/Tonsillopharyngitis -- Adult, DI for Viral Syndrome Discharge ED Provider: Garry Vargas [facility] [place] HPI General Stated complaint: sore throat and congestion Time Seen by Provider: 11/18/23 10:18 History of Present Illness Provider Complaint: He states that for the past 2 days he has had a very sore throat, malaise, sinus congestion and a cough. Related Data Home Medications Medication Instructions Recorded Confirmed clopidogrel 75 mg tablet 75 mg PO DAILY 11/18/23 11/18/23 levocetirizine 5 mg tablet 5 mg PO DAILY 11/18/23 11/18/23 losartan 50 mg-hydrochlorothiazide 1 tab PO DAILY 11/18/23 11/18/23 12.5 mg tablet pravastatin 40 mg tablet 40 mg PO HS 11/18/23 11/18/23 temazepam 30 mg capsule 30 mg PO DAILY 11/18/23 11/18/23 Previous Rx's Medication Instructions Recorded azithromycin 250 mg tablet 250 mg PO UD DOSE PK #6 tabs 11/18/23 (Zithromax) benzonatate 100 mg capsule 100 mg PO TIDP PRN Cough #30 caps 11/18/23 methylprednisolone 4 mg tablets in 4 mg PO DIRECTED 6 days #21 tabs 11/18/23 a dose pack Allergies Allergy/AdvReac Type Severity Reaction Status Date / Time No Known Allergies Allergy Verified 11/18/23 10:28 [facility] Disclaimer: The information contained in this section may have been updated after the patient was seen, as this information can be updated by other users. Social History Smoking Status: Former smoker alcohol intake: never current occupational status: employed Travel in the last 8 weeks: None ROS Obtained: Yes All systems reviewed & no additional complaints except as documented Constitutional Constitutional: Reports chills and Reports fever(s) Eyes Eyes: Denies eye discharge ENT Ears, Nose, Mouth, and Throat: Reports as per HPI Cardiovascular Cardiovascular: Denies chest pain Respiratory Respiratory: Denies chest congestion and Reports cough Gastrointestinal Gastrointestingal: Reports nausea; Denies abdominal pain, constipation, cramping, diarrhea or vomiting Musculoskeletal Musculoskeletal: Denies arthralgias Integumentary/Breasts Skin/Breast: Denies rash Neurologic Neurologic: Denies paresthesias Physical Exam General General appearance: alert and in no apparent distress Head Head exam: atraumatic, normocephalic and normal inspection Eye Eye exam: Present normal appearance, PERRL and EOMI ENT ENT exam: Present mucous membranes moist and normal external ear exam Expanded ENT Exam TM/Canal exam: Bilateral TM: erythema and bulging Nose exam: Absent sinus tenderness Mouth exam: Present normal external inspection; Absent drooling Teeth exam: Present normal inspection Throat exam: Present tonsillar erythema, tonsillomegaly and tonsillar exudate Neck Neck exam: Present normal inspection, full ROM and trachea midline; Absent tenderness, meningismus or lymphadenopathy Chest Chest inspection: Present normal inspection and symmetric chest wall rise; Absent tenderness Respiratory Respiratory exam: Present normal lung sounds bilaterally; Absent respiratory distress, wheezes or stridor Cardiovascular Cardiovascular exam: Present regular rate and normal rhythm; Absent systolic murmur or diastolic murmur Abdominal Exam Abdominal exam: Present soft and normal bowel sounds; Absent distention, tenderness, guarding, rebound or rigidity Extremities Exam Extremities exam: Present normal inspection and normal capillary refill; Absent calf tenderness Back Exam Back exam: Present normal inspection and full ROM; Absent tenderness, CVA tenderness (R) or CVA tenderness (L) Neurological Exam Neurological exam: Present alert, oriented X3 and CN II-XII intact Psychiatric Psychiatric exam: Present normal affect and normal mood Skin Skin exam: Present warm, dry, intact and normal color Medical Decision Making Medical Records Medical records reviewed: No I reviewed the patient's medical records. Christopher Inquiry Pt receiving controlled substance: No Lab Data Lab results reviewed: Yes I reviewed the patient's lab results.
[2023-11-18 10:41] LABS: UTC Strep Screen (Rapid) Negative (Negative)
[2023-11-18 10:42] LABS: UTC Influenza A Antigen Negative (Negative)
[2023-11-18 10:44] LABS: UTC Influenza B Antigen Negative (Negative)
[2023-11-18 10:48] VITALS: BP 136/87; PULSE 88; RESP 19; TEMP 36.8; O2SAT 98
[2023-11-18] MEDS: DEXAMETHASONE 4MG/ML 1ML VIAL 8 MG IM (11:05)
[2023-11-18 11:27] LABS: Adenovirus,PCR Not Detected (NotDetected); Coronavirus 19, PCR Not Detected (NotDetected); Coronavirus 229E Not Detected (NotDetected); Coronavirus NL63 Not Detected (NotDetected); Coronavirus OC43 Not Detected (NotDetected); Coronovirus HKU1,PCR Not Detected (NotDetected); Human Metapneumovirus Not Detected (NotDetected); Influenza A, PCR Not Detected (NotDetected); Influenza AH1, 2009 Not Detected (NotDetected); Influenza AH1, PCR Not Detected (NotDetected); Influenza AH3,PCR Not Detected (NotDetected); Influenza B, PCR Not Detected (NotDetected); Parainfluenza 1, PCR Not Detected (NotDetected); Parainfluenza 2, PCR Not Detected (NotDetected); Parainfluenza 3, PCR Not Detected (NotDetected); Parainfluenza 4, PCR Not Detected (NotDetected); Rhinovirus/Enterovirus Not Detected (NotDetected)
[2023-11-18 12:45] LABS: Respiratory Syncytial Virus Detected (NotDetected)
== END 2023-11-18 11:23 | disposition home or self-care (01) ==
PROVIDERS: Emergency Provider Nurse Practitioner Family; PCP Internal Medicine Adolescent Medicine
DX: J02.9 Acute pharyngitis, unspecified (principal); B97.4 Respiratory syncytial virus as the cause of diseases classified elsewhere; R50.9 Fever, unspecified; R05.9 Cough, unspecified; R09.81 Nasal congestion; R53.81 Other malaise; Z87.891 Personal history of nicotine dependence
CPT/HCPCS: 87632; 87635; 87804; 87880; 96372; 99204; 99212; G0463

== ENCOUNTER 2024-01-04 14:05 | Outpatient (RCR) | payer MEDICARE, SELFPAY ==
--- NOTE | 2024-01-04 18:08 | HMH.PTOPEV ---
PT Outpatient Evaluation Rehab PT Outpatient Evaluation Start: 01/04/24 15:05 Freq: Status: Active Protocol: Document 01/04/24 15:05 SARAH (Rec: 01/04/24 18:08 SARAH [id number]) E-signed By Jess Guillaume, PT Outpatient Therapy Subjective History Subjective History Pt is a 78 y/o male who reports L>R low back pain for ~1 year. Pt reports pain is constant and denies known activities that aggravate pain . Pt reports pain is only minimally improved with passing gas or having a bowel movement. Pt reports he is fairly sedentary and does not participate in a lot of activity. Pt denies fever, nausea/vomiting, abdominal pain, b/b dysfunction, or night sweats. Pt denies having imaging of his low back. Medical History: Hypertension, Hyperlipidema, partial knee replacement 8-10 years ago New diagnosis of cancer in past 12 No months? Chief Complaint Pain Symptom Type Ache,Dull Symptom Description Constant and Continuous Level of pain today (0-10) 3 Pain scale - at its best (0-10) 2 Pain scale - at its worst (0-10) 3 Lumbopelvic Eval Posture Lumbar Spine Posture Standing Position Flattened,Decreased Lordosis Palapation tenderness bilateral Lumbar/Sacral Palpation Findings Tenderness Lumbar/Sacral Palpation Overall Comment L2-L5 SP Accessory Movement L-spine Vertebrae Accessory Movements Central P/A [place] that Elicit Symptoms L2 bilateral L3 bilateral L4 bilateral L5 bilateral Range of Motion Lumbar Spine Active Flexion Range of 50 Motion (degrees) Lumbar Spine Active Extension Range of 15 Motion (degrees) Left Lumbar Spine Lateral Flexion Active 20 Range of Motion (degrees) Right Lumbar Spine Lateral Flexion 20 Active Range of Motion (degrees) Manual Muscle Test Bilateral Knee Extension Strength Grade 5 Normal Knee Flexion Strength Grade 5 Normal Hip Flexion Strength Grade 4 Good Hip Abduction Strength Grade 4 Good Hip Adduction Strength Grade 4 Good Hip Extension Strength Grade 4 Good Ankle Dorsiflexion Strength Grade 5 Normal Altered Sensation Comment equal and intact to light touch sensation bilaterally Special Tests Hip Sudhir (SUZE) Test Negative Left,Negative Right Hip Piriformis Test Negative Left,Negative Right Sciatic Nerve Tension Test Negative Left,Negative Right Unilateral Straight Leg Raise (Lasegue) Negative Left,Negative Right Test Oswestry Index Section 1 Pain Intensity The pain is mild and does not vary much Section 2 Personal Care (Washing,Dresing) my way of washing or dressing even though it causes some pain Section 3 Lifting I can lift heavy weights without extra pain Section 4 Walking I have some pain when walking but it does not increase with distance Section 5 Sitting I can sit in any chair for as long as I like Section 6 Standing I have some pain on standing, but it does not increase with time Section 7 Sleeping I get pain in bed, but it does not prevent me from sleeping well Section 8 Social Life My social life is normal and gives me no extra pain Section 9 Traveling I get some pain when traveling , but none of my usual forms of travel m Section 10 Changing Degreee of Pain My pain is neither getting better or worse Score and Risk Level Oswestry Sc 9 Oswestry Risk Level Mild Disability Outpatient Therapy Assessment Impairments Problems/Impairmments Palpation Tenderness,Impaired Range of Motion,Impaired Strength,Subjective C/O Pain, Impaired Self Care/Self Management Prognosis Rehab Potential Good Clinical Impression Consistent with Diagnosis Yes Consistent with Treat & refer to MD Short Term Goals Number of Weeks 2 Improve Self Care/Self Management Yes Patient to be Ind w/ HEP Yes Carbon Setter Goals Number of Weeks 4 Decreased Palpation Tenderness Yes: 0-1/4 TTP of lumbar SP Increase Range of Motion Yes: Improve lumbar flex AROM to at least 70 Increase Strength Yes: Improve hip strength to 4 +/5 grossly to assist with function Improve Oswestry Score Yes Decrease Subjective C/O Pain Yes: Improve pain to 0/10 to improve overall QOL Outpatient Therapy Plan of Care Treatment Plan May Include Therapeutic Exercise Including Home Yes Exercise Program Manual Therapy Techniques Yes Neuromuscular Re-education Yes Therapeutic Activities to Return to Yes Previous Functional/Work Level ADL/Self Care Education Yes Mechanical Traction Yes Dry Needling Yes Thermal Modalities Yes Electrical Stimulation Yes Ultrasound/Phonophoresis Yes Iontophoresis Yes Massage Yes Group Therapy for Medicare Yes Eval/Re-Eval Yes Frequency Times per week 2 Duration Number of Weeks 4 Addendums This patient is a candidate for social No or vocational rehab? Patient/Guardian verbally acknowledges Yes understanding of treatment program and consents to further treatment? Patient/Guardian verbally acknowledges Yes understanding of diagnosis, prognosis and goals for treatment? Eval Complexity PT Charges 46428 - Low Complexity Shoulder/Elbow Eval Shoulder Objective Measurements Elbow Objective Measurements PHYSICIAN CERTIFICATION: I certify the specified therapy services for [facility] are required, authorized, and reviewed every 30 days.
== END 2024-01-04 15:20 | disposition home or self-care (01) ==
LOC: PT 14:05
PROVIDERS: PCP Internal Medicine Adolescent Medicine; Visit Provider Internal Medicine Adolescent Medicine
DX: M54.50 Low back pain, unspecified (principal)
CPT/HCPCS: 97163

== ENCOUNTER 2024-01-13 15:00 | Outpatient (RCR) | payer MEDICARE, SELFPAY | END 2024-01-13 16:10 | disposition home or self-care (01) | LOC: OT 15:00 | PROVIDERS: PCP Internal Medicine Adolescent Medicine; Visit Provider Internal Medicine Adolescent Medicine | DX: M25.511 Pain in right shoulder (principal); M25.512 Pain in left shoulder | CPT/HCPCS: 97010; 97014; 97035; 97110; 97140; 97165; 97530; G0283 ==

== ENCOUNTER 2024-03-05 16:11 | Outpatient (CLI) | payer MEDICARE, SELFPAY ==
--- NOTE | 2024-03-05 | XR_ITS ---
FINAL REPORT TECHNIQUE: Chest PA & Lateral CLINICAL HISTORY: Persistent Cough. SOA. FINDINGS: 2 views of the chest were performed. The heart size is normal. The mediastinum is within normal limits. There is no acute cardiopulmonary process. There are no pleural effusions. There is no pneumothorax. The bony thorax appears intact. IMPRESSION: No acute cardiopulmonary process. Reviewed, Interpreted and Dictated by Mariano Menchaca MD Transcribed by Agatha Perez Authenticated and [facility]
== END 2024-03-05 23:59 | disposition home or self-care (01) ==
LOC: RAD 16:12
PROVIDERS: PCP Internal Medicine Adolescent Medicine; Visit Provider Nurse Practitioner Family
DX: R05.3 Chronic cough (principal)
CPT/HCPCS: 71046

== ENCOUNTER 2024-03-28 11:44 | Outpatient (CLI) | payer MEDICARE, SELFPAY ==
[2024-03-31 11:41] LABS: Miscellaneous Test SCANNED IMAGE
== END 2024-03-28 23:59 | disposition home or self-care (01) ==
LOC: LAB 11:45
PROVIDERS: PCP Internal Medicine Adolescent Medicine; Visit Provider Internal Medicine Adolescent Medicine
DX: R05.1 Acute cough (principal)

== ENCOUNTER 2024-03-29 16:26 | Outpatient (CLI) | payer MEDICARE, SELFPAY ==
--- NOTE | 2024-03-29 16:31 | XR_ITS ---
PROCEDURE INFORMATION: Exam: XR Chest Exam date and time: 03/29/2024 4:32 PM Age: 79 years old Clinical indication: Cough; Additional info: Persistent cough TECHNIQUE: Imaging protocol: Radiologic exam of the chest. Views: 2 views. COMPARISON: CR XR CHEST 2V 03/05/2024 4:16 PM FINDINGS: Lungs: Unremarkable. No consolidation. Pleural spaces: Unremarkable. No pleural effusion. No pneumothorax. Heart/Mediastinum: Unremarkable. No cardiomegaly. Bones/joints: Unremarkable. IMPRESSION: No acute findings.
== END 2024-03-29 23:59 | disposition home or self-care (01) ==
PROVIDERS: PCP Internal Medicine Adolescent Medicine; Visit Provider Internal Medicine Adolescent Medicine
DX: R05.8 Other specified cough (principal)
CPT/HCPCS: 71046

== ENCOUNTER 2024-04-04 07:04 | Outpatient (CLI) | payer MEDICARE, SELFPAY ==
--- NOTE | 2024-04-04 07:06 | CT_ITS ---
FINAL REPORT TECHNIQUE: Axial images were obtained from the lung apex to the mid abdomen by computed tomography. Coronal reformatted images were obtained. This study was performed with techniques to keep radiation doses as low as reasonably achievable, (ALARA). Individualized dose reduction techniques using automated exposure control or adjustment of mA and/or kV according to the patient''s size were employed. CLINICAL HISTORY: persistent cough COMPARISON: None FINDINGS: There is no axillary adenopathy. There is no hilar or mediastinal adenopathy. Heart size is normal. There are mild vascular calcifications in the aortic arch. The ascending aorta measures up to 4.0 cm in diameter consistent with an aortic aneurysm. There is no pericardial or pleural effusion. No suspicious infiltrate or nodule is identified. Limited images of the upper abdomen demonstrate gallstones in the dependent portion of the gallbladder. The left kidney is atrophic. IMPRESSION: Ascending aortic aneurysm. Gallstones. No definite acute infiltrate. Reviewed, Interpreted and Dictated by Mariano Menchaca MD Transcribed by Lynne Ferreira Authenticated and [facility]
== END 2024-04-04 23:59 | disposition home or self-care (01) ==
LOC: RAD 07:04
PROVIDERS: PCP Internal Medicine Adolescent Medicine; Visit Provider Internal Medicine Adolescent Medicine
DX: R05.3 Chronic cough (principal); J41.1 Mucopurulent chronic bronchitis
CPT/HCPCS: 71250

== ENCOUNTER 2024-07-13 16:00 | Outpatient (RCR) | payer MEDICARE, SELFPAY ==
--- NOTE | 2024-06-25 18:12 | HMH.PTOPEV ---
PT Outpatient Evaluation Rehab PT Outpatient Evaluation Start: 06/25/24 16:06 Freq: Status: Active Protocol: Document 06/25/24 16:06 RADHARIZWAN (Rec: 06/25/24 18:11 SARAH [id number]) E-signed By Jess Guillaume, PT Outpatient Therapy Subjective History Subjective History Pt is a 79 y/o who presents to PT 3 weeks s/p L TSA performed on 06/01/24. Pt denies complications following surgery. Pt reports he was in a sling for 2 weeks then was instructed to remove it and to wear it occasionally at his last follow-up visit with his surgeon. Pt reports he has not worn the sling since. Pt lorie reports he had an xray of his shoulder at his follow-up visit with good report. Pt reports minimal pain/soreness exacerbated by movement. Pt reports minimal tingling around the incision that has been present since the surgery . Pt reports he returns to his surgeon in August for his next follow-up visits. Pt denies further comorbidities to report. 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 Chief Complaint Pain,Stiff,Swelling,Weakness Symptom Type Ache,Dull Symptoms Relieved By Rest/Positioning Symptoms Aggravated By Physical Activity,Lifting Current Functional Limitations Reaching,Lifting,Dressing Symptom Description Intermittent Level of pain today (0-10) 0 Pain scale - at its best (0-10) 0 Pain scale - at its worst (0-10) 4 Shoulder/Elbow Eval Shoulder Objective Measurements Palpation Tenderness tenderness shoulder exam standard left Shoulder Palpation Findings Tenderness Shoulder Palpation Overall Comment 2/4 TTP along incision, UT mm, and deltoid mm Posture Shoulder Posture Sitting Position (L) Rounded,(R) Rounded,(L) Forward,(R) Forward Shoulder Posture Standing Position (L) Rounded,(R) Rounded,(L) Forward,(R) Forward Shoulder ROM Left Shoulder Abduction Active Range of 52 Motion (degrees) Shoulder Abduction Passive Range of 70 Motion (degrees) Shoulder Flexion Active Range of Motion 100 (degrees) Query Text: Shoulder Flexion Passive Range of Motion 110 (degrees) Shoulder External Rotation Active Range 18 of Motion (degrees) Shoulder External Rotation Passive Range 25 of Motion (degrees) Shoulder Internal Rotation Active Range 40 of Motion (degrees) pain with active ROM shoulder exam left standard pain with passive ROM shoulder exam left standard Shoulder MMT Shoulder Strength Reason Not Measured Orthopedic Precautions Elbow Objective Measurements Elbow ROM Left full ROM elbow exam standard left QuickDASH Activities Please rate your ability to do the following activities in the last week by selecting the number below the appropriate response. 1. Open a tight or new jar. Mild difficulty 2. 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 3. Carry a shopping bag or briefcase. No difficulty 4. Wash your back. Moderate difficulty 5. Use a knife to cut food. No difficulty 6. Recreational activities in which you No difficulty take some force or impact through your arm, shoulder, or hand (e.g., golf, hammering, tennis, etc.). 7. During the past week, to what extent Moderately has your arm, shoulder or hand problem interfered with your normal social activities with family, friends, neighbors or groups? 8. During the past week, were you Slightly limited limited in your work or other regular daily activites as a result of your arm, shoulder or hand problem? 9. Arm, shoulder or hand pain. Moderate 10. Tingling (pins and needles) in your Moderate arm, shoulder or hand. 11. During the past week, how much Moderate difficulty difficulty have you had sleeping because of the pain in your arm, shoulder or hand? Quick DASH 25 Outpatient Therapy Assessment Impairments Problems/Impairmments Palpation Tenderness,Impaired Range of Motion,Impaired Strength,Impaired Lifting, Impaired Dressing,Impaired Shower/Bathing,Impaired Household Care,Impaired Work Activities,Increased Edema, Subjective C/O Pain,Impaired Self Care/Self Management Prognosis Rehab Potential Good Clinical Impression Consistent with Diagnosis Yes Short Term Goals Number of Weeks 4 Increase Range of Motion Yes: L shoulder AROM abd to 90 to assist with function; PROM elevation to 120 Improve Quick Dash Score Yes: Improve score to 20 or less to improve overall QOL Decrease Edema Yes Improve Self Care/Self Management Yes Patient to be Ind w/ HEP Yes Group Home Goals Number of Weeks 6-8 Increase Range of Motion Yes: Improve L shoulder elevation to at least 110-120 & functional ER to 30 Increase Strength Yes: Improve L shoulder MMT to 4-4+/5 grossly to assist with function Restore Ability to Lift Objects to Yes: 2-5# with pain 2/10 or Shoulder Level less to assist with ADLs/ function Improve Ability to Dress Self Yes: ability to [place] shirt/ jacket I with pain 2/10 or less Improve Ability to Shower/Bathe Self Yes: ability to wash hair with pain 2/10 or less Improve Quick Dash Score Yes: Improve score to 15 or less to improve overall QOL Decrease Subjective C/O Pain Yes: Improve pain at worst to 2/10 to improve overall QOL Patient to be Ind w/ Advanced HEP Yes Outpatient Therapy Plan of Care Treatment Plan May Include Therapeutic Exercise Including Home Yes Exercise Program Manual Therapy Techniques Yes Neuromuscular Re-education Yes Therapeutic Activities to Return to Yes Previous Functional/Work Level ADL/Self Care Education Yes Thermal Modalities Yes Electrical Stimulation Yes Ultrasound/Phonophoresis Yes Iontophoresis Yes Vasopneumatic Compression Pump Yes Massage Yes Manual Lymphatic Drainage Yes Wound Care Yes Group Therapy for Medicare Yes Eval/Re-Eval Yes Frequency Times per week 2-3 Duration Number of Weeks 6-8 Addendums This patient is a candidate for social No or vocational rehab? Patient/Guardian verbally acknowledges Yes understanding of treatment program and consents to further treatment? Patient/Guardian verbally acknowledges Yes understanding of diagnosis, prognosis and goals for treatment? Eval Complexity PT Charges 38168 - Low Complexity PHYSICIAN CERTIFICATION: I certify the specified therapy services for Alberto David III are required, authorized, and reviewed every 30 days.
== END 2024-07-13 16:05 | disposition home or self-care (01) ==
LOC: PT 16:00
PROVIDERS: Visit Provider Internal Medicine Adolescent Medicine
DX: M25.512 Pain in left shoulder (principal)
CPT/HCPCS: 97163

== ENCOUNTER 2024-11-22 09:17 | Outpatient (CLI) | payer MEDICARE, SELFPAY ==
[2024-11-22 09:40] LABS: Basophils # 0.1 K/mm3 (0-0.2); Basophils % 1.1 % (0.1-2.0); Eosinophils # 0.3 K/mm3 (0.0-0.4); Eosinophils % 2.8 % (0.1-12.0); Hematocrit 44.6 % (42.0-52.0); Hemoglobin 15.2 g/dL (14.1-18.0); Lymphocytes # 1.6 K/mm3 (0.7-4.5); Lymphocytes % 17.2 % (10-50); Mean Corpuscular HGB Conc 34.1 g/dL (31.8-35.4); Mean Corpuscular Hemoglobin 32.6 pg (27.0-31.2); Mean Corpuscular Volume 95.7 fl (80-94); Mean Platelet Volume 10.6 fl (7.4-10.4); Monocytes # 0.9 K/mm3 (0.1-1.0); Neutrophils # 6.2 K/mm3 (1.8-7.8); Neutrophils % 68.6 % (37.0-80.0); Platelet Count 171 K/mm3 (142-424); Red Blood Count 4.66 M/mm3 (4.60-6.20); Red Cell Distribution Width 12.3 % (11.5-17.5)
[2024-11-22 09:54] LABS: Hemoglobin A1C 5.1 % (4.0-6.0)
[2024-11-22 10:15] LABS: Chloride 102 mmol/L (98-107); Sodium 140 mmol/L (136-145)
[2024-11-22 10:16] LABS: Potassium 4.6 mmoL/L (3.5-5.1)
[2024-11-22 10:18] LABS: Alanine Aminotransferase 26 U/L (12-78); Albumin/Globulin Ratio 1.7 (1.1-1.8); Anion Gap 11.6 mEq/L (5-15); Aspartate Amino Transferase 31 U/L (17-59); Blood Urea Nitrogen 20 mg/dl (9-20); Carbon Dioxide 31 mmol/L (22.0-30.0); Estimated Glomerular Filt Rate 49 ml/min (>60); GFR (African American) 59 ML/MIN (>60); Globulin 2.3 g/dL (1.3-3.2); Total Protein,Serum 6.3 g/dl (6.3-8.2)
[2024-11-22 10:19] LABS: Alkaline Phosphatase 58 U/L (38-126); Bilirubin,Total 0.9 mg/dl (0.2-1.3); Chol/HDL Ratio 6.3 (1-3.5); Cholesterol 133 mg/dl (140-200); Glucose 101 mg/dl (74-100); HDL Cholesterol 21 mg/dl (40-60); Triglycerides 236 mg/dl (30-150); VLDL Cholesterol 47 mg/dL (0-40)
[2024-11-22 10:30] LABS: Direct LDL Cholesterol 62.67 mg/dL (100-129)
[2024-11-22 12:29] LABS: Prostate Specific Ag Screen 0.4 ng/ml (0.0-4.0)
[2024-11-23 12:17] LABS: Sjogren's Anti-SS-A <0.2 AI (0.0-0.9); Sjogren's Anti-SS-B <0.2 AI (0.0-0.9)
== END 2024-11-22 23:59 | disposition home or self-care (01) ==
LOC: LAB 09:20
PROVIDERS: PCP Internal Medicine Adolescent Medicine; Visit Provider Internal Medicine Adolescent Medicine
DX: Z00.00 Encounter for general adult medical examination without abnormal findings (principal); R63.1 Polydipsia; K11.7 Disturbances of salivary secretion; E78.5 Hyperlipidemia, unspecified; Z13.1 Encounter for screening for diabetes mellitus; Z12.5 Encounter for screening for malignant neoplasm of prostate; Z79.899 Other long term (current) drug therapy
CPT/HCPCS: 36415; 80053; 80061; 83036; 85025; 86235; G0103

== ENCOUNTER 2025-01-16 11:12 | Outpatient (CLI) | payer MEDICARE, SELFPAY ==
--- NOTE | 2025-01-16 11:16 | US_ITS ---
FINAL REPORT TECHNIQUE: Ultrasound images of the kidneys and bladder were obtained. CLINICAL HISTORY: BI LAT FLANK PAIN FINDINGS: The right kidney measures 10 cm in length. There is no hydronephrosis. The left kidney measures 9 cm in length. There is no hydronephrosis. There is mild global parenchymal atrophy. The urinary bladder is unremarkable. IMPRESSION: Mild global parenchymal atrophy without hydronephrosis. Reviewed, Interpreted and Dictated by Nuvia Rosas MD Transcribed by Shawanda Victoria Authenticated and . [facility]
== END 2025-01-16 23:59 | disposition home or self-care (01) ==
LOC: RAD 11:13
PROVIDERS: PCP Internal Medicine Adolescent Medicine; Visit Provider Internal Medicine Adolescent Medicine
DX: R10.9 Unspecified abdominal pain (principal)
CPT/HCPCS: 76770